=== PATIENT | female | born 1970 | race African-American/Black ===

== ENCOUNTER 2016-08-21 09:28 | Emergency (ER) | payer OTHER ==
[~2016-08-21] VITALS: Ht 167.6 cm; Wt 59.0 kg
[2016-08-21 10:44] LABS: Urine Bilirubin Negative (Negative); Urine Blood TRACE /uL (Negative); Urine Color Yellow (Yellow); Urine Glucose Normal (Normal); Urine Ketone Negative (Negative); Urine Nitrite Negative (Negative); Urine RBC 8 /hpf (0 - 4); Urine Squamous Epithelial Cell FEW /hpf (<5); Urine Urobilinogen Normal (Negative)
[2016-08-21 10:44] LABS: DEFINITIVE VIEW TRANSMISSION; Hematocrit 30.5 % (36.0-46.0); Mean Corpuscular Hemoglobin 20.7 pg (28.0-32.0); Mean Corpuscular Hgb Conc. 29.6 g/dL (32.0-36.0); Mean Corpuscular Volume 70.2 fL (80.0-100.0); Mean Platelet Volume 7.4 fL (7.4-10.4); Platelet Count (auto) 617 10^3/uL (140-450)
[2016-08-21 10:47] LABS: Albumin 4.4 g/dL (3.4-5.0); BUN/Creatinine Ratio 12.2; Bilirubin, Total 0.3 mg/dL (0.2-1.0); Calcium 9.1 mg/dL (8.5-10.1); Potassium 3.7 mmol/L (3.5-5.1); Total Protein 9.4 g/dL (6.4-8.2)
[2016-08-21] MEDS ORDERED: SODIUM CHLORIDE 0.9% 1,000 ML IVB ONE (11:01)
[2016-08-21] MEDS ORDERED: GASTROGRAFIN 30 ML SOL ONE (11:05)
[2016-08-21] MEDS ORDERED: IOHEXOL 300 MG/ML 100ML BOTTLE IJ ONE (11:05)
[2016-08-21 11:07] LABS: Red Cell Distribution Width 22.9 % (11.6-16.0)
[2016-08-21 11:08] LABS: Metamyelocytes % 0; Myelocytes % 0; Promyelocytes % 0; Reactive Lymphocytes 0
[2016-08-21 11:10] LABS: INR 1.01 (0.9-1.15); Prothrombin Time 10.4 sec (9.37-12.3)
[2016-08-21] MEDS ORDERED: MORPHINE SULFATE 4 MG/ML SYRG IV ONE ×2 (11:15→15:45)
[2016-08-21] MEDS ORDERED: METOCLOPRAMIDE HCL 5MG/ml INJ 2ml VIAL IV ONE (11:15)
[2016-08-21 11:54] LABS: Anisocytosis Slight; Hypochromia Slight; Ovalocytes FEW; Platelet Estimate Adequate
[2016-08-21 12:47] LABS: REFLEX LACTIC ACID YES OR NO YES
[2016-08-21 15:01] LABS: Lactic Acid 2.2 mmol/L (0.4-2.0)
[2016-08-21 15:09] LABS: REFLEX LACTIC ACID YES OR NO NO
[2016-08-21] MEDS ORDERED: SODIUM CHLORIDE 0.9% 1,000 ML IV ONE (15:39)
[2016-08-21] MEDS ORDERED: PROMETHAZINE HCL 25 MG/ML 1ML IV ONE (15:45)
[2016-08-21] MEDS ORDERED: ACETAMINOPHEN 325 MG TAB PO ONE (17:00)
[2016-08-21] MEDS ORDERED: cefTRIAXone 1GM/50ML D5W 50 ML IV ONE (17:00)
[2016-08-21] MEDS ORDERED: HYDROmorphone HCL 2 MG/ML VL IV ONE (20:45)
[2016-08-21] MEDS ORDERED: ONDANSETRON HCL 4 MG/2 ML VIAL IV ONE (20:45)
[2016-08-21] MEDS ORDERED: LORazepam 0.5 MG TAB PO ONE (23:00)
[2016-08-21 23:09] VITALS: BP 124/77
== END 2016-08-21 23:14 | disposition home or self-care (01) ==
LOC: ER 09:29
DX: R10.2 Pelvic and perineal pain (principal); R50.9 Fever, unspecified; R10.30 Lower abdominal pain, unspecified; D50.9 Iron deficiency anemia, unspecified; C79.89 Secondary malignant neoplasm of other specified sites; R11.2 Nausea with vomiting, unspecified
CPT/HCPCS: 36415; 71020; 74177; 76856; 80053; 81001; 81025; 82150; 83605; 83690; 83735; 84484; 85007; 85027; 85610; 87040; 93005; 94761; 96361; 96365; 96375; 96376; 99285; J0696; J1170; J2270; J2405; J2550; J2765; J7030; Q9963; Q9967

== ENCOUNTER 2017-02-21 10:49 | Emergency (ER) | payer OTHER ==
[~2017-02-21] VITALS: Ht 167.6 cm; Wt 63.5 kg
[2017-02-21 11:38] LABS: Basophils # (auto) 0 uL; Basophils % (auto) 0.5 % (0.0-2.0); CONDITION Y; Eosinophils # (auto) 0.1 uL; Eosinophils % (auto) 0.9 % (0.0-7.0); Hematocrit 36.5 % (36.0-46.0); Hemoglobin 12.3 g/dL (12.2-16.2); Lymphocytes # (auto) 1.2 uL; Lymphocytes % (auto) 19.8 % (10.0-50.0); Mean Corpuscular Hemoglobin 32.1 pg (28.0-32.0); Mean Corpuscular Hgb Conc. 33.7 g/dL (32.0-36.0); Mean Corpuscular Volume 95.2 fL (80.0-100.0); Mean Platelet Volume 7.1 fL (7.4-10.4); Monocytes # (auto) 0.3 uL; Monocytes % (auto) 4.4 % (0.0-12.0); Neutrophils # (auto) 4.6 uL; Neutrophils % (auto) 74.4 % (37.0-80.0); Platelet Count (auto) 441 10^3/uL (140-450); Red Cell Distribution Width 15.4 % (11.6-16.0); White Blood Cell 6.2 10^3/uL (4.4-10.8)
[2017-02-21 12:20] LABS: Albumin 3.5 g/dL (3.4-5.0); BUN/Creatinine Ratio 12.3; Bilirubin, Total 0.2 mg/dL (0.2-1.0); Calcium 8.5 mg/dL (8.5-10.1); Potassium 3.5 mmol/L (3.5-5.1); Total Protein 7.4 g/dL (6.4-8.2)
[2017-02-21 14:00] LABS: Urine Bilirubin Negative (Negative); Urine Blood Negative /uL (Negative); Urine Color Yellow (Yellow); Urine Glucose Normal (Normal); Urine Ketone Negative (Negative); Urine Mucus FEW (None Seen); Urine Nitrite Negative (Negative); Urine RBC 4 /hpf (0 - 4); Urine Squamous Epithelial Cell FEW /hpf (<5)
[2017-02-21] MEDS ORDERED: SODIUM CHLORIDE 0.9% 1,000 ML IV ONE (14:00)
[2017-02-21] MEDS ORDERED: MORPHINE SULFATE 4 MG/ML SYRG IV ONE (14:00)
[2017-02-21] MEDS ORDERED: ONDANSETRON HCL 4 MG/2 ML VIAL IV ONE (14:00)
[2017-02-21 16:13] VITALS: BP 147/77
[2017-02-21] MEDS ORDERED: KETOROLAC TROMETH 30 MG/ML 1ML VIAL IV ONE (16:15)
== END 2017-02-21 16:39 | disposition home or self-care (01) ==
LOC: ER 10:49
DX: D25.9 Leiomyoma of uterus, unspecified (principal); F17.210 Nicotine dependence, cigarettes, uncomplicated
CPT/HCPCS: 36415; 74176; 76856; 80053; 81001; 81025; 84702; 85025; 96361; 96374; 96375; 99285; J1885; J2270; J2405; J7030

== ENCOUNTER 2017-11-30 09:01 | Emergency (ER) | payer MEDICAID, OTHER ==
[~2017-11-30] VITALS: Ht 167.6 cm; Wt 63.5 kg
[2017-11-30 09:12] VITALS: BP 141/99
[2017-11-30 09:55] LABS: Urine Bacteria NONE SEEN /hpf (None Seen); Urine Blood 1+ /uL (Negative); Urine Mucus FEW (None Seen); Urine Specific Gravity 1.022 (1.001-1.035); Urine WBC 80 /hpf (0 - 5)
== END 2017-11-30 10:38 | disposition home or self-care (01) ==
LOC: ER 09:01
DX: N39.0 Urinary tract infection, site not specified (principal); F17.200 Nicotine dependence, unspecified, uncomplicated
CPT/HCPCS: 81001

== ENCOUNTER 2017-12-11 09:41 | Emergency (ER) | payer OTHER ==
[~2017-12-11] VITALS: Ht 167.6 cm; Wt 69.9 kg
[2017-12-11 10:42] VITALS: BP 119/89
[2017-12-11] MEDS ORDERED: cefTRIAXone SOD 500 MG VL IM ONE (11:15)
== END 2017-12-11 12:00 | disposition home or self-care (01) ==
LOC: ER 09:41
DX: N39.0 Urinary tract infection, site not specified (principal); F17.210 Nicotine dependence, cigarettes, uncomplicated; Z20.2 Contact with and (suspected) exposure to infections with a predominantly sexual mode of transmission
CPT/HCPCS: 96372; 99283; J0696

== ENCOUNTER 2018-01-07 12:42 | Observation (INO) | payer MEDICAID, OTHER ==
[~2018-01-07] VITALS: Ht 167.6 cm; Wt 63.5 kg
[2018-01-07 12:58] VITALS: BP 126/81
[2018-01-07 13:24] LABS: Basophils # (auto) 0.1 uL; Basophils % (auto) 1.4 % (0.0-2.0); Eosinophils # (auto) 0 uL; Eosinophils % (auto) 0.5 % (0.0-7.0); Hematocrit 36.8 % (36.0-46.0); Hemoglobin 12.2 g/dL (12.2-16.2); Lymphocytes # (auto) 1.8 uL; Mean Corpuscular Hemoglobin 31.8 pg (28.0-32.0); Mean Corpuscular Hgb Conc. 33.1 g/dL (32.0-36.0); Mean Corpuscular Volume 95.8 fL (80.0-100.0); Monocytes # (auto) 0.4 uL; Monocytes % (auto) 5.8 % (0.0-12.0); Neutrophils # (auto) 4.3 uL; Neutrophils % (auto) 65.3 % (37.0-80.0); Platelet Count (auto) 390 10^3/uL (140-450); Red Blood Cells 3.85 10^6/uL (4.0-5.20); Red Cell Distribution Width 16.9 % (11.8-14.3); White Blood Cell 6.6 10^3/uL (4.4-10.8)
[2018-01-07 13:57] LABS: Alanine Aminotransferase 26 U/L (13-56); Albumin 3.5 g/dL (3.4-5.0); Alkaline Phosphatase 80 U/L (45-117); Anion Gap 9 (5-15); Aspartate Aminotransferase 20 U/L (15-37); BUN/Creatinine Ratio 15.8; Bilirubin, Total 0.2 mg/dL (0.2-1.0); Blood Urea Nitrogen 16 mg/dL (7-18); Calcium 8.8 mg/dL (8.5-10.1); Carbon Dioxide 23 mmol/L (21-32); Chloride 107 mmol/L (98-107); GFR African American 76 mL/min; GFR Non-African American 63 mL/min; Glucose 97 mg/dL (74-106); Potassium 4.1 mmol/L (3.5-5.1); Sodium 139 mmol/L (136-145); Total Protein 7.4 g/dL (6.4-8.2)
[2018-01-07] MEDS ORDERED: SODIUM CHLORIDE 0.9% 1,000 ML IVB ONE (17:04)
[2018-01-07] MEDS ORDERED: MORPHINE SULFATE 4 MG/ML SYR/VIAL ONE (17:13)
[2018-01-07] MEDS ORDERED: ONDANSETRON HCL 4 MG/2 ML VIAL IV ONE ×2 (17:15→20:00)
[2018-01-07] MEDS ORDERED: MORPHINE SULF INJ 2 MG/ML SYRINGE 1ML IV ONE ×2 (17:15→20:00)
[2018-01-07 17:34] LABS: Amylase 51 U/L (25-115); Lipase 188 U/L (73-393)
[2018-01-07] MEDS ORDERED: cefTRIAXone 1GM/10ml IVPUSH 10 ML IV ONE (17:45)
[2018-01-07 17:56] LABS: Urine Bacteria NONE SEEN /hpf (None Seen); Urine Blood 3+ /uL (Negative); Urine Specific Gravity 1.021 (1.001-1.035); Urine WBC 4 /hpf (0 - 5)
== END 2018-01-07 22:57 | disposition home or self-care (01) | DRG 251 ==
LOC: ER 12:42 → OVERFLOW 12:43 → ER 22:57
PROVIDERS: ADMIT Family Medicine; ATTEND Family Medicine
DX: R10.30 Lower abdominal pain, unspecified (principal); N39.0 Urinary tract infection, site not specified; F17.210 Nicotine dependence, cigarettes, uncomplicated; D25.9 Leiomyoma of uterus, unspecified; N93.9 Abnormal uterine and vaginal bleeding, unspecified; Z82.49 Family history of ischemic heart disease and other diseases of the circulatory system
CPT/HCPCS: 36415; 71046; 74176; 76856; 80053; 81001; 82150; 83690; 84484; 84702; 85025; 93005; 96361; 96374; 96375; 96376; 99285; G0378; J2270; J2405; J7030

== ENCOUNTER 2023-03-05 02:17 | Emergency (ER) | payer MEDICAID ==
[~2023-03-05] VITALS: Ht 170.2 cm; Wt 145.0 kg
[2023-03-05 03:10] LABS: Basophils # (auto) 0.1 10 ^3/uL (0-0.2); Basophils % (auto) 0.6 % (0.0-2.0); Eosinophils # (auto) 0 10 ^3/uL (0-0.8); Eosinophils % (auto) 0.3 % (0.0-7.0); Hematocrit 33.6 % (36.0-46.0); Hemoglobin 11.1 g/dL (12.2-16.2); Lymphocytes # (auto) 1.9 10 ^3/uL (0.4-5.4); Lymphocytes % (auto) 17.9 % (10.0-50.0); Mean Corpuscular Hemoglobin 32.4 pg (28.0-32.0); Mean Corpuscular Hgb Conc. 33.2 g/dL (32.0-36.0); Mean Corpuscular Volume 97.6 fL (80.0-100.0); Monocytes # (auto) 0.5 10 ^3/uL (0-1.3); Neutrophils # (auto) 8.2 10 ^3/uL (1.6-8.6); Neutrophils % (auto) 76.2 % (37.0-80.0); Nucleated Red Blood Cells % 0.1 %; Red Blood Cells 3.44 10^6/uL (4.0-5.20); Red Cell Distribution Width 15.1 % (11.8-14.3); White Blood Cell 10.7 10^3/uL (4.4-10.8)
[2023-03-05 03:22] LABS: Alanine Aminotransferase 16 U/L (7-40); Alkaline Phosphatase 65 U/L (46-116); Anion Gap 7.7 (5-15); Aspartate Aminotransferase 10 U/L (13-40); BUN/Creatinine Ratio 10.8 (10.0-20.0); Blood Urea Nitrogen 9 mg/dL (9-23); Calcium 8.8 mg/dL (8.7-10.4); Carbon Dioxide 23.3 mmol/L (20-30); Chloride 109 mmol/L (98-107); Glucose 158 mg/dL (74-106); Sodium 140 mmol/L (136-145)
[2023-03-05 03:23] LABS: Bilirubin, Total 0.2 mg/dL (0.2-1.0); Total Protein 6.8 g/dL (5.7-8.2)
[2023-03-05 03:29] LABS: INR 0.97 (0.9-1.15); Partial Thromboplastin Time 26.3 SEC (24.5-34.5); Prothrombin Time 10.2 sec (9.3-11.8)
[2023-03-05] MEDS ORDERED: ASPirin 325 MG TAB PO ONE (07:00)
[2023-03-05] MEDS ORDERED: SODIUM CHLORIDE 0.9% 1,000 ML IV ONE (07:00)
[2023-03-05 07:47] LABS: Basophils # (auto) 0.1 10 ^3/uL (0-0.2); Basophils % (auto) 1.2 % (0.0-2.0); Eosinophils # (auto) 0.1 10 ^3/uL (0-0.8); Eosinophils % (auto) 0.5 % (0.0-7.0); Hematocrit 34.5 % (36.0-46.0); Hemoglobin 11.3 g/dL (12.2-16.2); Lymphocytes # (auto) 1.7 10 ^3/uL (0.4-5.4); Lymphocytes % (auto) 16.5 % (10.0-50.0); Mean Corpuscular Hemoglobin 32.1 pg (28.0-32.0); Mean Corpuscular Hgb Conc. 32.7 g/dL (32.0-36.0); Mean Corpuscular Volume 98.4 fL (80.0-100.0); Monocytes # (auto) 0.6 10 ^3/uL (0-1.3); Monocytes % (auto) 5.5 % (0.0-12.0); Neutrophils # (auto) 8.1 10 ^3/uL (1.6-8.6); Neutrophils % (auto) 76.3 % (37.0-80.0); Nucleated Red Blood Cells % 0.1 %; Red Cell Distribution Width 15.6 % (11.8-14.3); White Blood Cell 10.6 10^3/uL (4.4-10.8)
[2023-03-05 07:58] LABS: Alanine Aminotransferase 20 U/L (7-40); Albumin 4.1 g/dL (3.2-4.8); Alkaline Phosphatase 69 U/L (46-116); Aspartate Aminotransferase 12 U/L (13-40); BUN/Creatinine Ratio 14.3 (10.0-20.0); Bilirubin, Total 0.2 mg/dL (0.2-1.0); Blood Urea Nitrogen 9 mg/dL (9-23); Glucose 113 mg/dL (74-106); Total Protein 6.6 g/dL (5.7-8.2)
[2023-03-05 08:09] VITALS: BP 131/87; RESP 18; TEMP 98; O2SAT 100
[2023-03-05 08:29] LABS: Chloride 110 mmol/L (98-107); Potassium 4.2 mmol/L (3.5-5.1); Sodium 140 mmol/L (136-145)
[2023-03-05] MEDS ORDERED: KETOROLAC TROMETH 30 MG/ML 1ML VIAL IV ONE (08:30)
[2023-03-05 08:32] LABS: Anion Gap 10.3 (5-15); Calcium 8.6 mg/dL (8.5-10.1); Carbon Dioxide 19.7 mmol/L (20-30)
[2023-03-05 08:37] VITALS: PULSE 84
[2023-03-05 11:01] LABS: Urine Bacteria NONE SEEN /hpf (None Seen); Urine Blood Negative /uL (Negative); Urine Clarity Clear (Clear); Urine Color Yellow (Yellow); Urine Mucus FEW (None Seen); Urine Protein, UAD Negative (Negative); Urine Specific Gravity 1.023 (1.001-1.035); Urine Urobilinogen Normal (Negative); Urine WBC 1 /hpf (0 - 5); Urine pH 5.5 (5.0-8.0)
== END 2023-03-05 11:47 | disposition left against medical advice (07) ==
LOC: ER 02:17
DX: R07.89 Other chest pain (principal); F17.200 Nicotine dependence, unspecified, uncomplicated; F12.10 Cannabis abuse, uncomplicated; M54.2 Cervicalgia; R06.02 Shortness of breath; Z79.899 Other long term (current) drug therapy
CPT/HCPCS: 36415; 70450; 71045; 72125; 80053; 81001; 83735; 83880; 84484; 85025; 85610; 85730; 93005; 93971; 96361; 96374; 99285; J1885; J7030